=== PATIENT | female | born 2000 | race Two or more races ===

== ENCOUNTER 2023-01-28 12:22 | Emergency (ER) | payer MEDICAID ==
[~2023-01-28] VITALS: Ht 157.5 cm; Wt 50.0 kg
[2023-01-28 14:04] VITALS: BP 128/79
[2023-01-28 15:54] LABS: Urine Bacteria NONE SEEN /hpf (None Seen); Urine Blood Negative /uL (Negative); Urine Mucus FEW (None Seen); Urine Specific Gravity 1.023 (1.001-1.035); Urine WBC 2 /hpf (0 - 5)
[2023-01-28] MEDS ORDERED: IPRATROPIUM BROM 0.5 MG/2.5ML INH SOL NEB ONE (17:00)
[2023-01-28] MEDS ORDERED: DexAMETHasone SOD PHOS 10MG/1ML VIAL INJ IM ONE (17:00)
[2023-01-28] MEDS ORDERED: ALBUTEROL SULF 2.5 MG/0.5ML(0.5%) NEB SOLN NEB ONE (17:00)
[2023-01-28] MEDS ORDERED: cefTRIAXone SOD 500 MG VL IM ONE (17:00)
[2023-01-28] MEDS ORDERED: BENZ100C19 PO (17:04)
[2023-01-28] MEDS ORDERED: AUG875T PO (17:04)
[2023-01-28] MEDS ORDERED: PRED20TA2 PO (17:04)
[2023-01-28] MEDS ORDERED: ALBU108A5 IN (17:04)
[2023-01-28] MEDS ORDERED: BENZLOZ2 MT (17:04)
== END 2023-01-28 17:05 | disposition home or self-care (01) ==
LOC: ER 12:22
DX: J18.9 Pneumonia, unspecified organism (principal); J03.90 Acute tonsillitis, unspecified; R07.89 Other chest pain
CPT/HCPCS: 71045; 81001; 93005; 94640; 96372; 99285; J0696; J1100; J7644

== ENCOUNTER 2023-10-25 13:33 | Inpatient (IN) | payer MEDICAID ==
[2023-10-25] VITALS (7 sets, daily range): BP systolic 121–178; BP diastolic 67–148; PULSE 66–98; RESP 13–25; TEMP 98.1; O2SAT 99–100
[~2023-10-25] VITALS: Ht 170.2 cm; Wt 51.7 kg
[2023-10-25] MEDS: ACETAMINOPHEN IV 100 ML IV ONE (08:12)
[~2023-10-25 13:33] MED LIST: ALBU108A5 IN; AUG875T PO; BENZ100C19 PO; BENZLOZ2 MT; PRED20TA2 PO
[2023-10-25 15:13] LABS: Basophils # (auto) 0 10 ^3/uL (0-0.2); Basophils % (auto) 0.2 % (0.0-2.0); Eosinophils # (auto) 0 10 ^3/uL (0-0.8); Eosinophils % (auto) 0.1 % (0.0-7.0); Hematocrit 32.1 % (36.0-46.0); Hemoglobin 10.5 g/dL (12.2-16.2); Lymphocytes # (auto) 0.8 10 ^3/uL (0.4-5.4); Lymphocytes % (auto) 6.2 % (10.0-50.0); Mean Corpuscular Hemoglobin 27.7 pg (28.0-32.0); Mean Corpuscular Hgb Conc. 32.9 g/dL (32.0-36.0); Mean Corpuscular Volume 84.3 fL (80.0-100.0); Monocytes # (auto) 0.5 10 ^3/uL (0-1.3); Monocytes % (auto) 3.7 % (0.0-12.0); Neutrophils # (auto) 11.7 10 ^3/uL (1.6-8.6); Neutrophils % (auto) 89.8 % (37.0-80.0); Nucleated Red Blood Cells % 0.1 %; Red Blood Cells 3.81 10^6/uL (4.0-5.20); Red Cell Distribution Width 13.2 % (11.8-14.3)
[2023-10-25 15:19] LABS: Chloride 107 mmol/L (98-107); Potassium 3.8 mmol/L (3.5-5.1); Sodium 138 mmol/L (136-145)
[2023-10-25 15:20] LABS: Anion Gap 5 (5-15); Calcium 9.1 mg/dL (8.7-10.4); Carbon Dioxide 26 mmol/L (20-30)
[2023-10-25 15:25] LABS: Blood Urea Nitrogen 13 mg/dL (9-23); Glucose 130 mg/dL (74-106)
[2023-10-25] MEDS: SODIUM CHLORIDE 0.9% 500 ML IVB ONE (15:30)
[2023-10-25] MEDS: SODIUM CHLORIDE 0.9% 1,000 ML IV ONE (15:30)
[2023-10-25] MEDS: SODIUM CHLORIDE 0.9% 1,000 ML IVB ONE (16:30)
[2023-10-25 16:48] LABS: INR 1.13 (0.9-1.15); Partial Thromboplastin Time 23.1 SEC (24.5-34.5); Prothrombin Time 11.8 sec (9.3-11.8)
[2023-10-25] MEDS: CELECOXIB 100 MG CAP ONE (17:11)
[2023-10-25] MEDS: GABAPENTIN 400 MG CAP ONE (17:11)
[2023-10-25] MEDS: DexAMETHasone SOD PHOS 4 MG/1ML SDV INJ ONE (17:13)
[2023-10-25] MEDS ORDERED: DOCU-94 PO (17:13)
[2023-10-25] MEDS ORDERED: HYDR-4902 PO (17:13)
[2023-10-25] MEDS: EPINEPHrine HCL 1 MG/1 ML AMP ONE (17:13)
[2023-10-25] MEDS: BUPIVACAINE 0.25% INJ 50ML VIAL ONE (17:13)
[2023-10-25] MEDS: ACETAMINOPHEN IV 1000 MG/100ML (10MG/ML) IV ONE (17:15)
[2023-10-25] MEDS: CELECOXIB 100 MG CAP PO ONE (17:15)
[2023-10-25] MEDS: GABAPENTIN 400 MG CAP PO ONE (17:15)
[2023-10-25] MEDS ORDERED: ROCURONIUM 10MG/ML 10ML VIAL IV ONE (17:17)
[2023-10-25] MEDS ORDERED: KETAMINE 50mg/ML 10ml Vial 10 ML ONE (17:17)
[2023-10-25] MEDS ORDERED: KETOROLAC TROMETH 30 MG/ML 1ML VIAL ONE (17:17)
[2023-10-25] MEDS ORDERED: ONDANSETRON HCL 4 MG/2 ML VIAL ONE (17:17)
[2023-10-25] MEDS ORDERED: LIDOCAINE 2% (LOCAL ANESTH.) PF 5ml SDV ONE (17:17)
[2023-10-25] MEDS ORDERED: fentaNYL CITRATE 100 MCG/2 ML VL ONE (17:17)
[2023-10-25] MEDS ORDERED: SUGAMMADEX 200mg/2ml Vial (100MG/ML) IV ONE (17:17)
[2023-10-25] MEDS ORDERED: GLYCOPYRROLATE 0.2 MG/ML 1ML VIAL ONE (17:17)
[2023-10-25] MEDS ORDERED: PROPOFOL 10 MG/ML 20 ML IV ONE (17:17)
[2023-10-25] MEDS ORDERED: DexAMETHasone SOD PHOS 10MG/1ML VIAL INJ ONE (17:17)
[2023-10-25] MEDS ORDERED: KETAMINE 50mg/ML 1ml syringe ONE (17:18)
[2023-10-25] MEDS ORDERED: SODIUM CHLORIDE LOCK 10 ML ONE (17:43)
[2023-10-25] MEDS ORDERED: ceFAZolin 1GM VL ONE (17:43)
[2023-10-25] MEDS ORDERED: MORPHINE SULFATE INJ 2 MG/ml SYRG IV PRN ×2 (17:45→18:15)
[2023-10-25] MEDS ORDERED: NITROGLYCERIN 0.4 MG SL TAB SL PRN ×2 (17:45→18:15)
[2023-10-25] MEDS ORDERED: LACTATED RINGER'S 1,000 ML IV SCH (19:00)
[2023-10-25] MEDS ORDERED: ONDANSETRON HCL 4 MG/2 ML VIAL IV PRN ×2 (19:00→19:30)
[2023-10-25] MEDS ORDERED: fentaNYL CITRATE 100 MCG/2 ML VL IV PRN (19:30)
[2023-10-25] MEDS ORDERED: HYDROmorphone HCL 2 MG/ML VL/or syr IV PRN (19:30)
[2023-10-25] MEDS ORDERED: FLUMAZENIL 0.1 MG/ML INJ 10ML MDV IV PRN (19:30)
[2023-10-25] MEDS ORDERED: LABETALOL HCL 5 MG/ML 4ML SYRINGE IV PRN (19:30)
[2023-10-25] MEDS ORDERED: NALOXONE HCL 0.4 MG/ML VIAL IV PRN (19:30)
[2023-10-25] MEDS ORDERED: oxyCODONE HCL 5MG TAB PO PRN (19:30)
[2023-10-25] MEDS ORDERED: ePHEDrine SULFATE 50 MG/ML AMP IV PRN (19:30)
[2023-10-25] MEDS ORDERED: hydrALAZINE HCL 20 MG/ML VL IV PRN (19:30)
[2023-10-25] MEDS ORDERED: MIDAZOLAM HCL 2MG/2ML 2ml VIAL (1mg/ml) ONE (19:39)
[2023-10-25 19:41] LABS: Basophils # (auto) 0 10 ^3/uL (0-0.2); Basophils % (auto) 0.1 % (0.0-2.0); Eosinophils # (auto) 0 10 ^3/uL (0-0.8); Eosinophils % (auto) 0.2 % (0.0-7.0); Hematocrit 29.7 % (36.0-46.0); Hemoglobin 9.7 g/dL (12.2-16.2); Lymphocytes # (auto) 1.7 10 ^3/uL (0.4-5.4); Lymphocytes % (auto) 8.8 % (10.0-50.0); Mean Corpuscular Hemoglobin 27.8 pg (28.0-32.0); Mean Corpuscular Hgb Conc. 32.7 g/dL (32.0-36.0); Monocytes # (auto) 0.5 10 ^3/uL (0-1.3); Monocytes % (auto) 2.6 % (0.0-12.0); Neutrophils # (auto) 17.3 10 ^3/uL (1.6-8.6); Neutrophils % (auto) 88.3 % (37.0-80.0); Red Blood Cells 3.49 10^6/uL (4.0-5.20); Red Cell Distribution Width 13.4 % (11.8-14.3); White Blood Cell 19.5 10^3/uL (4.4-10.8)
[2023-10-25] MEDS: MIDAZOLAM HCL 5 MG/ML-1ML VIAL ONE (20:31)
[2023-10-25 21:39] LABS: Chloride 109 mmol/L (98-107); Sodium 137 mmol/L (136-145)
[2023-10-25 21:40] LABS: Anion Gap 6 (5-15); Calcium 8.3 mg/dL (8.7-10.4); Carbon Dioxide 22 mmol/L (20-30)
[2023-10-25 21:45] LABS: BUN/Creatinine Ratio 12.1 (10.0-20.0); Blood Urea Nitrogen 7 mg/dL (9-23); Glucose 129 mg/dL (74-106); Magnesium 1.8 mg/dL (1.6-2.6)
[2023-10-25 21:47] LABS: Phosphorus 3.9 mg/dL (2.4-5.1)
[2023-10-25] MEDS: ceFAZolin 2 GM/D5W100ml 100 ML IV SCH (22:00)
[2023-10-25 22:11] LABS: Lactic Acid w/Reflex 2.9 mmol/L (0.4-2.0)
[2023-10-25] MEDS: HYDROmorphone HCL 2 MG/ML VL/or syr IV PRN (23:42)
[2023-10-26] VITALS (15 sets, daily range): BP systolic 100–133; BP diastolic 51–75; PULSE 66–102; RESP 8–89; TEMP 98.2–98.9; O2SAT 96–99
[2023-10-26 04:41] LABS: Basophils # (auto) 0 10 ^3/uL (0-0.2); Eosinophils # (auto) 0 10 ^3/uL (0-0.8); Hematocrit 27.8 % (36.0-46.0); Hemoglobin 9.4 g/dL (12.2-16.2); Lymphocytes # (auto) 0.5 10 ^3/uL (0.4-5.4); Lymphocytes % (auto) 3.5 % (10.0-50.0); Mean Corpuscular Hemoglobin 28.1 pg (28.0-32.0); Mean Corpuscular Hgb Conc. 33.7 g/dL (32.0-36.0); Mean Corpuscular Volume 83.4 fL (80.0-100.0); Monocytes # (auto) 0.2 10 ^3/uL (0-1.3); Monocytes % (auto) 1.4 % (0.0-12.0); Neutrophils # (auto) 12.8 10 ^3/uL (1.6-8.6); Neutrophils % (auto) 95.1 % (37.0-80.0); Red Blood Cells 3.33 10^6/uL (4.0-5.20); Red Cell Distribution Width 13.3 % (11.8-14.3); White Blood Cell 13.5 10^3/uL (4.4-10.8)
[2023-10-26 05:01] LABS: Alkaline Phosphatase 49 U/L (46-116); Anion Gap 7 (5-15); Aspartate Aminotransferase 15 U/L (13-40); BUN/Creatinine Ratio 13.2 (10.0-20.0); Blood Urea Nitrogen 7 mg/dL (9-23); Calcium 9.2 mg/dL (8.7-10.4); Carbon Dioxide 23 mmol/L (20-30); Chloride 106 mmol/L (98-107); Glucose 144 mg/dL (74-106); Sodium 136 mmol/L (136-145)
[2023-10-26 05:02] LABS: Albumin 3.9 g/dL (3.2-4.8); Bilirubin, Total 0.9 mg/dL (0.2-1.0); Total Protein 6.2 g/dL (5.7-8.2)
[2023-10-26 05:37] LABS: Alanine Aminotransferase 9 U/L (7-40)
[2023-10-26] MEDS ORDERED: ACETAMINOPHEN 325 MG TAB PO PRN (08:00)
[2023-10-26] MEDS: LACTATED RINGER'S 1,000 ML IV SCH (09:14)
[2023-10-26] MEDS: MORPHINE SULFATE INJ 2 MG/ml SYRG IV PRN (09:59)
[2023-10-26] MEDS: metroNIDAZOLE 500MG/100ML 100 ML IV SCH (12:35)
[2023-10-26] MEDS: BISACODYL 10 MG RECT SUPP PR PRN (12:36)
[2023-10-26] MEDS: HYDROcodone-ACET 5/325MG TAB PO PRN (12:37)
[2023-10-26] MEDS: DOCUSATE SOD 100 MG CAP PO SCH (20:56)
[2023-10-27] VITALS (9 sets, daily range): BP systolic 99–115; BP diastolic 48–66; PULSE 66–100; RESP 12–19; TEMP 98.3–98.9; O2SAT 95–99
[2023-10-27 06:31] LABS: Basophils # (auto) 0 10 ^3/uL (0-0.2); Eosinophils # (auto) 0 10 ^3/uL (0-0.8); Hemoglobin 7.3 g/dL (12.2-16.2); White Blood Cell 7.1 10^3/uL (4.4-10.8)
[2023-10-27 06:34] LABS: Basophils % (auto) 0.3 % (0.0-2.0); Eosinophils % (auto) 0.6 % (0.0-7.0); Hematocrit 20.9 % (36.0-46.0); Lymphocytes # (auto) 1.9 10 ^3/uL (0.4-5.4); Lymphocytes % (auto) 27.4 % (10.0-50.0); Mean Corpuscular Hemoglobin 29.4 pg (28.0-32.0); Mean Corpuscular Hgb Conc. 34.9 g/dL (32.0-36.0); Mean Corpuscular Volume 84.2 fL (80.0-100.0); Monocytes # (auto) 0.7 10 ^3/uL (0-1.3); Monocytes % (auto) 9.7 % (0.0-12.0); Neutrophils # (auto) 4.4 10 ^3/uL (1.6-8.6); Red Blood Cells 2.49 10^6/uL (4.0-5.20); Red Cell Distribution Width 13.1 % (11.8-14.3)
[2023-10-27 06:40] LABS: Albumin 3.2 g/dL (3.2-4.8); Alkaline Phosphatase 38 U/L (46-116); Aspartate Aminotransferase 17 U/L (13-40); Calcium 8.3 mg/dL (8.7-10.4); Carbon Dioxide 28 mmol/L (20-30); Glucose 86 mg/dL (74-106)
[2023-10-27 07:00] LABS: Alanine Aminotransferase < 9 U/L (7-40); Anion Gap 5 (5-15); Chloride 108 mmol/L (98-107); Potassium 3.4 mmol/L (3.5-5.1); Sodium 141 mmol/L (136-145)
[2023-10-27 07:13] LABS: BUN/Creatinine Ratio 16.4 (10.0-20.0); Bilirubin, Total 0.5 mg/dL (0.2-1.0); Blood Urea Nitrogen 9 mg/dL (9-23)
[2023-10-27] MEDS: POTASSIUM EFFERVESENT TAB 25 MEQ PO ONE (14:54)
[2023-10-27 18:44] LABS: Hematocrit 28.1 % (36.0-46.0); Hemoglobin 9.4 g/dL (12.2-16.2)
[2023-10-28 05:00] VITALS: BP 105/74; PULSE 65; RESP 18; TEMP 98.3; O2SAT 100
[2023-10-28 06:17] LABS: Chloride 107 mmol/L (98-107); Sodium 141 mmol/L (136-145)
[2023-10-28 06:18] LABS: Anion Gap 4 (5-15); Calcium 8.9 mg/dL (8.5-10.1); Carbon Dioxide 30 mmol/L (20-30)
[2023-10-28 06:23] LABS: BUN/Creatinine Ratio 16.7 (10.0-20.0); Blood Urea Nitrogen 9 mg/dL (9-23); Glucose 83 mg/dL (74-106)
[2023-10-28 06:24] LABS: Basophils # (auto) 0 10 ^3/uL (0-0.2); Basophils % (auto) 0.6 % (0.0-2.0); Eosinophils # (auto) 0.2 10 ^3/uL (0-0.8); Eosinophils % (auto) 2.8 % (0.0-7.0); Hematocrit 27.2 % (36.0-46.0); Hemoglobin 9.2 g/dL (12.2-16.2); Lymphocytes # (auto) 2.3 10 ^3/uL (0.4-5.4); Lymphocytes % (auto) 40.7 % (10.0-50.0); Mean Corpuscular Hgb Conc. 33.9 g/dL (32.0-36.0); Mean Corpuscular Volume 85.5 fL (80.0-100.0); Monocytes # (auto) 0.4 10 ^3/uL (0-1.3); Neutrophils # (auto) 2.7 10 ^3/uL (1.6-8.6); Neutrophils % (auto) 47.9 % (37.0-80.0); Red Blood Cells 3.19 10^6/uL (4.0-5.20); Red Cell Distribution Width 14.3 % (11.8-14.3); White Blood Cell 5.6 10^3/uL (4.4-10.8)
[2023-10-28 09:00] VITALS: BP 109/74; PULSE 78; RESP 12; TEMP 98.3; O2SAT 99
[2023-10-28] MEDS ORDERED: LORazepam 2MG/ML-1ML VIAL IV PRN (10:30)
[2023-10-28 13:00] VITALS: BP 121/85; PULSE 63; RESP 14; TEMP 98.8; O2SAT 98
[2023-10-28 16:37] VITALS: BP 113/61; PULSE 74; RESP 14; TEMP 98.7; O2SAT 98
[2023-10-28 22:00] VITALS: BP 107/65; PULSE 62; RESP 18; TEMP 98.7; O2SAT 100
[2023-10-29 05:00] VITALS: BP 105/67; PULSE 76; RESP 18; TEMP 98.9; O2SAT 95
[2023-10-29] MEDS: DOCUSATE SOD 100 MG CAP PO PRN (08:36)
[2023-10-29 09:00] VITALS: BP 120/69; PULSE 80; RESP 16; TEMP 98.4; O2SAT 97
== END 2023-10-29 14:10 | disposition home or self-care (01) | DRG 547 ==
LOC: ER 13:33 → OVERFLOW 18:13 → ICU WEST 20:43 → WEST WING 10-26 11:31
PROVIDERS: ADMIT Obstetrics & Gynecology; ATTEND Nurse Practitioner Acute Care
PROC: 0UB50ZZ Excision of Right Fallopian Tube, Open Approach (ICD-10-PCS; 2023-10-25)
PROC: 30233N1 Transfusion of Nonautologous Red Blood Cells into Peripheral Vein, Percutaneous Approach (ICD-10-PCS; 2023-10-25)
PROC: 0W9G0ZZ Drainage of Peritoneal Cavity, Open Approach (ICD-10-PCS; 2023-10-25)
PROC: 10T20ZZ Resection of Products of Conception, Ectopic, Open Approach (ICD-10-PCS; principal; 2023-10-25 17:43)
DX: O00.101 Right tubal pregnancy without intrauterine pregnancy (principal); G93.41 Metabolic encephalopathy; K66.1 Hemoperitoneum; R65.10 Systemic inflammatory response syndrome (SIRS) of non-infectious origin without acute organ dysfunction; D62 Acute posthemorrhagic anemia; F17.210 Nicotine dependence, cigarettes, uncomplicated; F41.9 Anxiety disorder, unspecified; O99.341 Other mental disorders complicating pregnancy, first trimester; O26.891 Other specified pregnancy related conditions, first trimester; O99.011 Anemia complicating pregnancy, first trimester; R56.9 Unspecified convulsions; O29 Complications of anesthesia during pregnancy; R73.9 Hyperglycemia, unspecified; Z3A.08 8 weeks gestation of pregnancy; Z53.31 Laparoscopic surgical procedure converted to open procedure
CPT/HCPCS: 36415; 70450; 70551; 76801; 76817; 80048; 80053; 82962; 83605; 83735; 84100; 84132; 84443; 84702; 85014; 85018; 85025; 85610; 85730; 86850; 86900; 86901; 86920; 87081; 95819; 97110; 97116; 97163; 97530; 99291; G0378; J0131; J0171; J0690; J1100; J1885; J2001; J2250; J2405; J2704; J3490

== ENCOUNTER → 2023-10-31 | Outpatient (CLI) | payer MEDICAID ==
[~2023-10-31] MED LIST changes: +DOCU-94 PO; +HYDR-4902 PO
[2023-10-31 11:48] LABS: Basophils # (auto) 0 10 ^3/uL (0-0.2); Basophils % (auto) 0.5 % (0.0-2.0); Eosinophils # (auto) 0.3 10 ^3/uL (0-0.8); Eosinophils % (auto) 4.2 % (0.0-7.0); Hematocrit 33.4 % (36.0-46.0); Hemoglobin 11.2 g/dL (12.2-16.2); Lymphocytes # (auto) 1.7 10 ^3/uL (0.4-5.4); Lymphocytes % (auto) 25.9 % (10.0-50.0); Mean Corpuscular Hemoglobin 28.7 pg (28.0-32.0); Mean Corpuscular Hgb Conc. 33.6 g/dL (32.0-36.0); Mean Corpuscular Volume 85.7 fL (80.0-100.0); Monocytes # (auto) 0.5 10 ^3/uL (0-1.3); Monocytes % (auto) 8.4 % (0.0-12.0); Neutrophils # (auto) 3.9 10 ^3/uL (1.6-8.6); Red Cell Distribution Width 14.3 % (11.8-14.3); White Blood Cell 6.5 10^3/uL (4.4-10.8)
== END | disposition home or self-care (01) ==
LOC: LAB 11:37
PROVIDERS: ATTEND Obstetrics & Gynecology
DX: D64.9 Anemia, unspecified (principal)
CPT/HCPCS: 36415; 85025